=== PATIENT | male | born 1960 | race Hispanic/Latino ===

== ENCOUNTER 2018-01-23 07:17 | Day surgery (SDC) | payer OTHER ==
[~2018-01-23 07:17] MED LIST: ANCEF/STERILE WATER 2 GM/20 ML IV NR
[2018-01-23] MEDS ORDERED: DEMEROL IV PRN (08:58)
[2018-01-23] MEDS ORDERED: ZOFRAN IV PRN (08:58)
--- NOTE | 2018-01-23 08:59 | Anesthesia Day of Surgery ---
Anesthesia Day of Surgery - Day of Surgery Patient Examined: Yes Patient H&P Reviewed: Yes Patient is NPO: Yes
[2018-01-23] MEDS ORDERED: LACTATED RINGERS 1,000 ML IV SCH ×2 (09:00)
[2018-01-23] MEDS ORDERED: VERSED IV NR (09:00)
--- NOTE | 2018-01-23 09:00 | Anesthesia Consultation ---
Anesthesia Consult and Med Hx Date of service: 01/23/18 - Airway Anesthetic Teeth Evaluation: Good ROM Head & Neck: Adequate Mental/Hyoid Distance: Adequate Mallampati Class: Class I Intubation Access Assessment: Good - Pulmonary Exam CTA: Yes - Cardiac Exam Cardiac Exam: RRR - Pre-Operative Health Status ASA Pre-Surgery Classification: ASA2 Proposed Anesthetic Plan: General - Pulmonary Hx Smoking: Yes (STOPPED X 2 YRS , 1/2 PPD X 32 YRS) Hx Sleep Apnea: No (IRWIN PRE SCREEN LOW RISK.) - Cardiovascular System Hx Hypertension: No - Other Systems Hx Cancer: No
[2018-01-23] MEDS ORDERED: MARCAINE-EPI 0.25%-1:200,000 INFILTRATI ONE ×2 (09:09→10:25)
[2018-01-23] MEDS ORDERED: XYLOCAINE 1% 20 mL ONE (09:09)
[2018-01-23] MEDS ORDERED: SUBLIMAZE ONE (10:13)
[2018-01-23] MEDS ORDERED: DECADRON ONE (10:19)
[2018-01-23] MEDS ORDERED: DIPRIVAN 10 MG/ML IV ONE ×2 (10:22→10:27)
[2018-01-23] MEDS ORDERED: NACL 0.9% IR ONE (10:25)
[2018-01-23] MEDS ORDERED: XYLOCAINE 1% 20 mL INFILTRATI ONE (10:25)
[2018-01-23] MEDS ORDERED: ADRENALIN IV ONE (10:25)
[2018-01-23] MEDS ORDERED: ROBINUL ONE (10:35)
[2018-01-23] MEDS ORDERED: ZOFRAN ONE (10:35)
[2018-01-23] MEDS ORDERED: XYLOCAINE MPF 2% ONE (10:37)
--- NOTE | 2018-01-23 11:02 | Short Stay Summary ---
Short Stay Documentation Date of service: 01/23/18 - History H&P: obtained from office - Allergies and Medications Current Medications: Allergies morphine Allergy (Verified 01/16/18 16:44) Shortness of Breath oxycodone HCl [From Percocet] Allergy (Verified 01/16/18 16:44) TONGUE SWELLING tramadol HCl [From Ultram] Allergy (Verified 01/16/18 16:44) GI ULCER Home Medications Medication Instructions Recorded Confirmed Last Taken Type Cetirizine HCl [ZyrTEC] 10 mg PO DAILY 01/16/18 01/23/18 01/23/18 History 0500 Montelukast [Singulair] 10 mg PO QPM 01/16/18 01/23/18 01/23/18 History 0500 Active Medications Cefazolin Sodium (Ancef/Sterile Water 2 Gm/20 Ml) 2 gm IV PREOP NR Stop: 01/23/18 23:59 Hydromorphone HCl (Dilaudid) 0.5 mg IV Q10MIN PRN PRN Reason: Pain , Severe (7-10) Stop: 01/23/18 20:00 Lactated Ringer's (Lactated Ringers) 1,000 mls @ 100 mls/hr IV DIRECT PATRICK Last Admin: 01/23/18 09:15 Dose: 100 mls/hr Meperidine HCl (Demerol) 25 mg IV ONCE PRN PRN Reason: Shivering Stop: 01/23/18 20:00 Midazolam HCl (Versed) 2 mg IV PREOP NR Stop: 01/23/18 23:59 Last Admin: 01/23/18 09:39 Dose: 2 mg Ondansetron HCl (Zofran) 4 mg IV ONCE PRN PRN Reason: Nausea And Vomiting Stop: 01/23/18 13:00 - Brief post op/procedure progress note Date of procedure: 01/23/18 Pre-op diagnosis: right knee pain, medial meniscus tear Post-op diagnosis: other (persistent right knee pain with mechanical symptoms, large complex tear posterior horn medial meniscus) Procedure: right knee arthroscopy partial medial meniscectomy Anesthesia: GETA Findings: as above Surgeon: CARMELA HUTCHINS Estimated blood loss: minimal Pathology: none Condition: stable - Disposition Condition at discharge: Good Disposition: DC-01 TO HOME OR SELFCARE Short Stay Discharge Plan Follow up with: PRIMARY CARE, [Primary Care Provider] - 7 Days
[2018-01-23] MEDS ORDERED: ZOFRAN PO PRN (11:04)
[2018-01-23] MEDS ORDERED: NORCO 5/325 PO PRN (11:05)
[2018-01-23] MEDS: DILAUDID IV PRN ×2 (11:15→11:20)
--- NOTE | 2018-01-23 12:10 | Operative Report ---
PREOPERATIVE DIAGNOSES: Persistent right knee pain with mechanical symptoms, medial meniscus tear. POSTOPERATIVE DIAGNOSES: Persistent right knee pain, large complex tear located within the posterior horn of the medial meniscus, grade 1 articular cartilage loss in the central aspect of the patella. OPERATIVE PROCEDURE: Right knee arthroscopy, partial medial meniscectomy. SURGEON: Ant De Oliveira MD ACCOUNT GROUP SUPERVISOR: None. ANESTHESIA: General. PREOPERATIVE ANTIBIOTICS: Ancef 2 grams IV within 1 hour of skin incision. DVT PROPHYLAXIS: Open toe, thigh high compression stockings and SCD pumps to the nonoperative left lower extremity. OPERATIVE COMPLICATIONS: None. OPERATIVE HISTORY AND PHYSICAL: This is a 57-year-old male who has had persistent progressive worsening right knee pain with mechanical symptoms, which has failed to improve despite extensive nonoperative treatment. MRI scan was performed, which was positive for a tear located within the posterior horn of the medial meniscus. The patient's MRI findings and diagnosis were discussed at length and after making sure the patient understood the diagnosis all questions were answered, we then discussed treatment alternatives of surgical and nonsurgical including risks and benefits of both. After a long lengthy discussion, the patient opted to proceed with operative intervention. This would entail a right knee arthroscopy, partial medial meniscectomy and surgery as indicated. The risks of which were discussed to include but not exclusive of infection, blood loss, nerve damage, loss of range of motion, and persistent pain. Again, the patient understood, all questions answered, wished to proceed with operative intervention. DESCRIPTION OF PROCEDURE: The patient was seen in the preoperative holding area at which point informed consent was reviewed and appropriate right lower extremity was identified and then marked. The patient was then brought back to the operating room and placed supine on a standard operating room table, at which point, general anesthesia was administered and an LMA tube was inserted. After confirmation of adequate general anesthesia, appropriate placement of the LMA tube, we then made sure that all bony prominences were well padded. There were no wrinkles in the compression stocking to the left lower extremity and SCD pumps applied to the left lower extremity. The right lower extremity was then examined under anesthesia. The patient was seen to have full range of motion. There was no evidence of instability with a negative Jagjit, negative anterior drawer, negative posterior drawer. No varus or valgus instability at 0 as well as 30 degrees of flexion. No recurvatum or excessive internal rotation. Following examination under anesthesia, the right lower extremity was then prepped and draped in the usual sterile fashion. After prepping and draping, a timeout was called and appropriate right lower extremity was identified which again had been marked in the preoperative holding room area. I began the procedure by first infiltrating the knee with 30 mL of 1% lidocaine without epinephrine and 30 mL of 0.25% Marcaine with epinephrine, which the patient tolerated well. There were no complications. Following this, began procedure by first making standard anterolateral portal with a #15 blade. Once the portals were established, the cannula with a blunt trocar was inserted in the intra-articular aspect of the knee joint. This went without difficulty or damage to articular cartilage. Once in place, arthroscopic camera immediately placed and the medial compartment established with an anteromedial portal by first inserting an 18-gauge spinal needle under direct arthroscopic visualization. Once confirmed to be in appropriate positioning, a 15 blade was then used to establish an anteromedial portal again under direct arthroscopic visualization. Once completed, the blunt trocar was inserted to widen the portal site. Following that, an arthroscopic probe, we began a diagnostic arthroscopy in the medial compartment. The patient had a large complex tear located in the posterior horn of the medial meniscus. There was grade 1 articular cartilage loss in the weightbearing portion of the medial femoral condyle and medial tibial plateau. We then performed a partial medial meniscectomy in standard fashion using a series of basket punches and a 4.0 meniscal shaver getting down to a nice smooth stable healthy remaining border along removing the white-white and white-red as well as a portion of the red-red zone. Inspection of the notch showed the ACL and PCL to be intact and stable when probed. Inspection of the lateral compartment was carried out, placed the knee in a [id number] position. Once the position was felt there was a small radial tear located in the posterior horn of the lateral meniscus, this was then debrided using a 4.0 meniscal shaver. The remainder of the lateral meniscus was intact. The popliteus was intact and stable when probed. There was normal articular cartilage of the lateral femoral condyle and lateral tibial plateau. Inspection of the medial and lateral gutters showed these to be free and clear of all loose bodies. Inspection of patellofemoral joint showed mild grade 1 articular cartilage loss in the central aspect of the patella. There was normal patellofemoral tracking. There were no loose bodies within the suprapatellar pouch. Arthroscopic camera was then placed in the posterior aspect of the knee adducent to cruciate ligament and femoral condyle. Once in the posterior aspect of the knee, we saw there were no root tears of the menisci and there were no loose bodies present. Arthroscopic camera was then removed from the posterior aspect of the knee and arthroscopic pump was turned off making sure there was good hemostasis. Once this was confirmed, the extraneous fluid was suctioned from the knee using arthroscopic cannula. Following this, all the arthroscopic instrumentation was removed. The 2 portals sites were then closed with 3-0 nylon in simple fashion. Adaptic, 4 x 4, ABD, paper tape, small and the open toe thigh high compression stocking was applied followed by the Donjoy Cryo/Cuff blanket. Following this, the patient was awakened from general anesthesia without complications, taken to recovery room in stable condition. Standard postoperative orders were written. JOB# [id number] CASSIA/ARPITA
[2018-01-23] MEDS ORDERED: NORCO 5/325 PO NR (12:11)
[2018-01-23] MEDS ORDERED: ZOFRAN PO SCH (12:13)
[2018-01-23] MEDS ORDERED: ZOFRAN ODT PO NR (13:00)
[2018-01-23] MEDS ORDERED: ZOFRAN ODT PO PRN (14:52)
[2018-01-23 16:14] VITALS: BP 102/64
== END 2018-01-23 13:05 | disposition home or self-care (01) ==
LOC: OR 07:17
PROVIDERS: ATTEND Orthopaedic Surgery
DX: S83.241A Other tear of medial meniscus, current injury, right knee, initial encounter (principal); Z88.8 Allergy status to other drugs, medicaments and biological substances; Z88.5 Allergy status to narcotic agent; Z79.899 Other long term (current) drug therapy; Z87.891 Personal history of nicotine dependence; X58.XXXA Exposure to other specified factors, initial encounter; Y93.89 Activity, other specified; Y92.89 Other specified places as the place of occurrence of the external cause; Y99.8 Other external cause status
CPT/HCPCS: 29880; 97161; A4217; J0171; J1100; J1170; J2175; J2250; J2405; J2704; J3010; J7120; Q0162